=== PATIENT | male | born 1990 | race Caucasian/White ===

== ENCOUNTER 2017-03-11 00:45 | Emergency (ER) | payer BC ==
[~2017-03-11] VITALS: Ht 175.3 cm; Wt 94.8 kg
[~2017-03-11 00:45] MED LIST: ACID REDUCER PO; IBUP-1277 PO
[2017-03-11 00:56] VITALS: TEMP 36.8; Ht 175.3 cm; Wt 94.8 kg
[2017-03-11] MEDS ORDERED: HYDROCORTISONE HC 2.5% CRM 30GM TUBE EXT ONE (01:15)
[2017-03-11 01:38] VITALS: BP 118/77; PULSE 96; O2SAT 94
--- NOTE | 2017-03-11 01:45 | EMERGENCY ROOM VISIT NOTE ---
History First contact with patient: 01:03 Chief Complaint: RECTAL BLEEDING Stated Complaint: RECTUM BLEEDING Nursing Triage Summary: pt reports "this episode" of rectal bleeding began today. denies use of blood thinners. denies abd pain. denies n/v. pt ambulatory independnetly and breathing WNL. History of Present Illness The patient is a 26 year old male who presents to the Emergency Room with complaints of rectal pain and bleeding that has been intermittent for the past 6 months. Patient states when he strains to go the bathroom he has blood on the toilet paper and in the toilet that is bright red. No black stool. Patient states he eats a lot of processed foods and strains a lot. Patient denies chest pain, dyspnea, fever, chills, nausea, vomiting, diarrhea, abdominal pain, penile pain, testicular pain. No colonoscopy in the past. No family history of Crohn's, ulcerative colitis or colon cancer. Review of Systems See HPI for pertinent positives & negatives. A total of 10 systems reviewed and were otherwise negative. Past Medical/Surgical History Tonsillectomy Social History Smoking Status: Never Smoker Smokeless Tobacco Use: No Alcohol Use: occasionally Drug Use: none Occupation Status: employed Current/Historical Medications No Active Prescriptions or Reported Meds Allergies Coded Allergies: No Known Allergies (Unverified , 03/11/17) Physical Exam Vital Signs Date Time Temp Pulse Resp B/P (MAP) Pulse Ox O2 Delivery O2 Flow Rate FiO2 03/11/17 01:38 96 18 118/77 94 03/11/17 00:56 36.8 87 19 120/86 96 Room Air Pain Rating (0-10): 6.0 Physical Exam VITALS: Vitals are noted on the nurse's note and reviewed by myself. Vital signs stable. GENERAL: Pleasant male anxious-appearing, in no acute distress, nondiaphoretic, well-developed well-nourished. SKIN: The skin was without rashes, erythema, edema, or bruising. There is no tenting of the skin. Capillary reflex less than 2 seconds. HEAD: Normocephalic atraumatic. EARS: External auditory canals clear, tympanic membranes pearly mcclure without erythema or effusion bilaterally. EYES: Pupils equal round and reactive to light and accommodation. Conjunctivae without injection, sclerae without icterus. Extraocular movements intact. NOSE: Patent, turbinates without inflammation or discharge. MOUTH: Mucous membranes moist. Pharynx without erythema or exudate. Uvula midline. Airway patent. Tongue does not deviate. NECK: Supple without nuchal rigidity. No lymphadenopathy. No thyromegaly. Cervical spine is nontender. No JVD. HEART: Regular rate and rhythm without murmurs gallops or rubs. LUNGS: Clear to auscultation bilaterally without wheezes, rales or rhonchi. No dullness to percussion. No retractions or accessory muscle use. ABDOMEN: Positive bowel sounds x 4. Normal tympanic percussion. Soft, nontender, without masses or organomegaly. Martin sign negative. No guarding or rebound tenderness. Rectal exam: 3 large nonthrombosed hemorrhoids without abscess or fissure MUSCULOSKELETAL: No muscle atrophy, erythema, or edema noted. NEURO: Patient was alert and oriented to person place and time. Normal sensation to light and sharp touch. No focal neurological deficits. Medical Decision & Procedures Medications Administered Medications (Trade) Dose Ordered Sig/Ivan Route Start Time Stop Time Status Last Admin Dose Admin Hydrocortisone (Proctozone Hc 2.5% Crm) 1 appln NOW ONCE EXT 03/11/17 01:15 03/11/17 01:16 DC 03/11/17 01:25 1 APPLN ED Course Prior records/ancillary studies reviewed. Triage Nursing notes reviewed. Additional history obtained from the family. The patient's history was concerning for possible gastrointestinal bleeding. Differential diagnosis: Etiologies such as diverticulosis, AVM, coagulopathy, colitis, inflammatory bowel disease, malignancy, fissure, hemorrhoids, as well as others were entertained. Physical exam: As above. The patients vital signs were stable. ER treatment provided: Anusol On reassessment the patient felt better. Diagnostics interpreted by me: Deferred This appears to be consistent with external hemorrhoids. Patient was strongly encouraged to increase his fluid and fiber intake. He is advised take a stool softener. He was advised to avoid straining when to go the bathroom. He was advised to use hemorrhoid cream and to see his family care for referral to have his hemorrhoids removed. There were not thrombosed. No palpable abscess. He was well-appearing. He was advised to return to the ER immediately for severe pain, fevers, heavy bleeding, worsening signs or symptoms or as needed. By the evaluation outlined above emergent etiologies such as malignancy, inflammatory bowel disease, as well as others were deemed relatively unlikely. The pt informed about the findings as listed above. All questions were answered and pleased with the treatment. Return instructions were outlined and the patient was discharged in stable condition. Outpatient prescription management: Anusol Referral: The patient was referred back to their primary care physician for follow-up in 2 to 3 days for a recheck of the current condition Medical Decision As above Impression Primary Impression: External hemorrhoid, bleeding Departure Information Dispostion Home / Self-Care Condition GOOD Prescriptions No Active Prescriptions or Reported Meds Forms WORK / SCHOOL INSTRUCTIONS, HOME CARE DOCUMENTATION FORM, Days off work : 2 Work Instructions, IMPORTANT VISIT INFORMATION Patient Instructions Hemorrhoids Self Care, [employer] Additional Instructions Recommend using MiraLAX daily. Avoid straining when you go to the bathroom. Increase your fluid and fiber intake. Use Anusol cream 2-3 times a day to the hemorrhoids. Follow-up with family care in 2-3 days for referral to have your hemorrhoids removed. Return to ER sooner for heavy bleeding, severe pain, fevers, worsening signs or symptoms or as needed.
== END 2017-03-11 01:38 | disposition home or self-care (01) ==
LOC: C.EDB 00:46
DX: K64.4 Residual hemorrhoidal skin tags (principal)

== ENCOUNTER 2021-10-01 13:12 | Inpatient (IN) ==
[2021-10-01] MEDS ORDERED: KETOROLAC TROMETHAMINE 15 MG/ML VIAL IV ONE (13:27)
[2021-10-01] MEDS ORDERED: SODIUM CHLORIDE 0.9% 1000ML 1,000 ML IV ONE (13:27)
[2021-10-01] MEDS ORDERED: MoRPHine SULFATE 10 MG/ML CARP/VIAL IV STA ×2 (13:27→15:47)
[2021-10-01] MEDS ORDERED: ONDANSETRON INJ 2 MG/ML 2 ML VIAL IV STA (13:27)
--- NOTE | 2021-10-01 13:34 | Emergency Department Note ---
Impression & Plan Calculus of kidney, Hydronephrosis, Abdominal pain ED Provider Note NAME: JACKIE ALVARENGA AGE: 31 SEX: M : 1990 ARRIVES VIA: Walk-In INFORMANT: Patient ED PROVIDER(S): Tommy Vega DO CHIEF COMPLAINT: Right flank pain HPI: Patient is a 31-year-old male who presents to the ER for right flank pain. Pain started about an hour ago. He admits to nausea and feeling like he is going to vomit. No headache or change in vision. No chest pain or shortness of breath. Denies any dysuria, urgency, or frequency. History of kidney stones and this feels similar but significant worse. Pain is a 2010 and is unremitting. He is radiating to his right lower quadrant. Denies any testicle swelling penile drainage or discharge. ROS: See above HPI for pertinent positives & negatives. A total of 10 systems reviewed and were otherwise negative. PAST MEDICAL HISTORY:See Below PAST SURGICAL HISTORY:See Below FAMILY HISTORY:See Below SOCIAL HISTORY:See Below HOME MEDICATIONS:See Below ALLERGIES:See Below VITALS:See Below PHYSICAL EXAMINATION: GENERAL: Sitting up in bed, alert, significant distress holding right flank tearful and crying EYE EXAM: normal conjunctiva. PERRL and EOM's grossly intact. OROPHARYNX: no exudate, no erythema, lips, buccal mucosa, and tongue normal and mucous membranes are moist NECK: supple, no nuchal rigidity, no adenopathy, non-tender LUNGS: Clear to auscultation. Normal chest wall mechanics HEART: no murmurs, S1 normal and S2 normal ABDOMEN: abdomen soft, non-tender, normo-active bowel sounds, no masses, no rebound or guarding. UPPER EXTREMITIES: upper extremities are grossly normal. LOWER EXTREMITIES: No pitting edema. NEURO EXAM: Normal sensorium, cranial nerves II-XII grossly intact, normal speech, no gross weakness of arms, no gross weakness of legs. MEDICAL DECISION MAKING: Patient is a 31-year-old male who presents ER for severe right flank pain. IV was established blood work restain. Labs show no significant leukocytosis or anemia. BMP with mild elevation in glucose. Bilirubin LFTs were unremarkable. Lipase was normal. UA was contaminated but did have multiple RBCs. CT shows a 3 mm distal right ureteral stone. Covid was negative. He was given an equivalent of 20 mg of morphine over several hours. She was still having persistent pain. He was updated bedside discussed with hospitalist for further observation. Triage Nursing notes reviewed. Limited review of prior medical records performed Vital Signs: reviewed and remarkable for HTN Differential diagnosis: Differential diagnoses includes but is not limited to gastritis, peptic ulcer disease, GERD, gallbladder disease, pancreatitis, small bowel obstruction, acute coronary syndrome, pericarditis, ischemic bowel, irritable bowel disease, irritable bowel syndrome, appendicitis, diverticulitis, malignancy, hernia, urinary tract infection, torsion, perforation, trauma, infectious. ER treatment provided: See below Diagnostics interpreted by me: ECG: none Cardiac Monitoring: An order was placed for continuous cardiac monitoring. The monitor shows a rate of 92 with sinus rhythm. Laboratory studies: As stated above and show below. Imaging studies: CT abdomen pelvis shows a 3 mm right ureteral stone Consultation(s): d/w Dr. Lees for further eval Procedures: none Critical Care: None Past Med/Surg History Medical History (Updated 10/01/21 @ 16:29 by Tommy Vega DO) No chronic problems Family History (Updated 07/26/19 @ 23:06 by Justin Diego) Other No significant family history Social History Smoking Status: Never smoker Preferred Language: Icelandic Feels Safe at Home: Yes Allergies Allergies Allergy/AdvReac Type Severity Reaction Status Date / Time No Known Allergies Allergy Unverified 10/01/21 14:52 Home Meds Home Medications Medication Instructions Recorded Confirmed No Known Home Medications 10/01/21 10/01/21 Results & Data (ED) Vital Signs Vital Signs - 24 hr 10/01/21 13:14 10/01/21 13:40 10/01/21 14:20 Temperature 36.9 C Temperature Source Temporal Artery Scan Pulse Rate 95 H Pulse Rate [Finger] 76 Pulse Rhythm [Finger] Regular Pulse Strength [Finger] Normal Respiratory Rate 24 22 20 Respiratory Effort / Characteristics Non-Labored Respiratory Depth Normal Blood Pressure 162/86 H Blood Pressure [Right Arm] 160/89 H Blood Pressure Mean 111 Blood Pressure Mean [Right Arm] 112 Blood Pressure Position [Right Arm] Lying Pulse Oximetry 98 98 Oxygen Delivery Method Room Air Room Air Room Air Sepsis Recent Fever Within 48 Hours No Sepsis New/Unexplained Change in Mental Status N/A Sepsis Action Taken by Nursing No Action Required 10/01/21 16:00 Temperature Temperature Source Pulse Rate Pulse Rate [Finger] 84 Pulse Rhythm [Finger] Regular Pulse Strength [Finger] Normal Respiratory Rate 18 Respiratory Effort / Characteristics Non-Labored Respiratory Depth Normal Blood Pressure Blood Pressure [Right Arm] 156/88 H Blood Pressure Mean Blood Pressure Mean [Right Arm] 110 Blood Pressure Position [Right Arm] Lying Pulse Oximetry 96 Oxygen Delivery Method Room Air Sepsis Recent Fever Within 48 Hours Sepsis New/Unexplained Change in Mental Status Sepsis Action Taken by Nursing Laboratory Data Result diagrams: 10/01/21 13:40 10/01/21 13:40 Lab Results 10/01/21 10/01/21 10/01/21 Range/Units 13:40 13:40 15:08 WBC 8.09 (4.8-10.8) K/uL RBC 5.04 (4.7-6.1) M/uL Hgb 14.8 (14.0-18.0) g/dL Hct 44.8 (42-52) % MCV 88.9 (80-100) fL MCH 29.4 (25-34) pg MCHC 33.0 (32-36) g/dL RDW Std Deviation 44.9 (36.4-46.3) fL RDW Coeff of Ju 13.7 (11.5-14.5) % Plt Count 212 (130-400) K/uL MPV 10.3 (7.4-10.4) fL Immature Gran % (Auto) 0.5 % Neut % (Auto) 52.5 % Lymph % (Auto) 38.6 % [place] % (Auto) 6.9 % Eos % (Auto) 1.4 % Baso % (Auto) 0.1 % Neut # (Auto) 4.25 (1.4-6.5) K/uL Lymph # (Auto) 3.12 (1.2-3.4) K/uL [place] # (Auto) 0.56 (0.11-0.59) K/uL Eos # (Auto) 0.11 (0-0.5) K/uL Baso # (Auto) 0.01 (0-0.2) K/uL Immature Gran # (Auto) 0.04 H (0.00-0.02) K/uL Sodium 140 (136-145) mmol/L Potassium 3.5 (3.5-5.1) mmol/L Chloride 107 (98-107) mmol/L Carbon Dioxide 28 (21-32) mmol/L Anion Gap 5 (3-11) BUN 15 (6-23) mg/dl Creatinine 1.24 (0.6-1.4) mg/dl Est Cr Clr Drug Dosing 105.1 ml/min Est GFR ( Amer) 89.2 ml/min Est GFR (Non-Af Amer) 77.0 ml/min BUN/Creatinine Ratio 12.1 (10-20) Glucose 108 H (70-99(Fasting)) mg/dl Calcium 9.0 (8.5-10.1) mg/dl Total Bilirubin 0.8 (0.2-1.0) mg/dl AST 20 (13-39) U/L ALT 24 (7-52) U/L Alkaline Phosphatase 47 (34-104) U/L Total Protein 7.0 (6.0-8.3) gm/dl Albumin 4.4 (3.4-5.0) gm/dl Globulin 2.6 (2.5-4.0) gm/dl Albumin/Globulin Ratio 1.7 (0.9-2) Lipase 30 (11-82) U/L Urine Color [place] Urine Appearance Turbid A (Clear) Urine pH 5.0 (4.5-7.5) Ur Specific [place] 1.034 H (1.000-1.030) Urine Protein 2+ H (Negative) Urine Glucose (UA) Negative (Negative) Urine Ketones Trace H (Negative) Urine Blood 3+ H (Negative) Urine Nitrite Negative (Negative) Urine Bilirubin 1+ H (Negative) Urine Urobilinogen Negative (Negative) Ur Leukocyte Esterase 1+ H (Negative) Urine WBC (Auto) 5-10 H (0-5) /hpf Urine RBC (Auto) >30 H (0-4) /hpf U Hyaline Cast (Auto) 0 (0-5) /lpf U Epithel Cells (Auto) 20-30 H (0-5) /lpf Urine Bacteria (Auto) Negative (Negative) SARS-CoV-2, RNA, NAAT (NEGATIVE) 10/01/21 Range/Units 16:00 WBC (4.8-10.8) K/uL RBC (4.7-6.1) M/uL Hgb (14.0-18.0) g/dL Hct (42-52) % MCV (80-100) fL MCH (25-34) pg MCHC (32-36) g/dL RDW Std Deviation (36.4-46.3) fL RDW Coeff of Ju (11.5-14.5) % Plt Count (130-400) K/uL MPV (7.4-10.4) fL Immature Gran % (Auto) % Neut % (Auto) % Lymph % (Auto) % [place] % (Auto) % Eos % (Auto) % Baso % (Auto) % Neut # (Auto) (1.4-6.5) K/uL Lymph # (Auto) (1.2-3.4) K/uL [place] # (Auto) (0.11-0.59) K/uL Eos # (Auto) (0-0.5) K/uL Baso # (Auto) (0-0.2) K/uL Immature Gran # (Auto) (0.00-0.02) K/uL Sodium (136-145) mmol/L Potassium (3.5-5.1) mmol/L Chloride (98-107) mmol/L Carbon Dioxide (21-32) mmol/L Anion Gap (3-11) BUN (6-23) mg/dl Creatinine (0.6-1.4) mg/dl Est Cr Clr Drug Dosing ml/min Est GFR ( Amer) ml/min Est GFR (Non-Af Amer) ml/min BUN/Creatinine Ratio (10-20) Glucose (70-99(Fasting)) mg/dl Calcium (8.5-10.1) mg/dl Total Bilirubin (0.2-1.0) mg/dl AST (13-39) U/L ALT (7-52) U/L Alkaline Phosphatase (34-104) U/L Total Protein (6.0-8.3) gm/dl Albumin (3.4-5.0) gm/dl Globulin (2.5-4.0) gm/dl Albumin/Globulin Ratio (0.9-2) Lipase (11-82) U/L Urine Color Urine Appearance (Clear) Urine pH (4.5-7.5) Ur Specific [place] (1.000-1.030) Urine Protein (Negative) Urine Glucose (UA) (Negative) Urine Ketones (Negative) Urine Blood (Negative) Urine Nitrite (Negative) Urine Bilirubin (Negative) Urine Urobilinogen (Negative) Ur Leukocyte Esterase (Negative) Urine WBC (Auto) (0-5) /hpf Urine RBC (Auto) (0-4) /hpf U Hyaline Cast (Auto) (0-5) /lpf U Epithel Cells (Auto) (0-5) /lpf Urine Bacteria (Auto) (Negative) SARS-CoV-2, RNA, NAAT NEGATIVE (NEGATIVE) Administered Medications Sodium Chloride (Nss 1000ml) 2,000 mls @ 999 mls/hr IV .Q2H1M ONE Stop: 10/01/21 16:59 Last Admin: 10/01/21 15:15 Dose: 999 mls/hr Documented by: [id number] Discontinued Medications Hydromorphone HCl (Hydromorphone Inj 1 Mg/Ml Syringe) 1 mg IV NOW STA Stop: 10/01/21 14:16 Last Admin: 10/01/21 14:19 Dose: 1 mg Documented by: [id number] Sodium Chloride (Nss 1000ml) 1,000 mls @ 999 mls/hr IV .Q1H1M ONE Stop: 10/01/21 14:27 Last Infusion: 10/01/21 14:44 Dose: 999 mls/hr Documented by: [id number] Admin: 10/01/21 13:43 Dose: 999 mls/hr Documented by: [id number] Ketorolac Tromethamine (Ketorolac Tromethamine 15 Mg/Ml Vial) 15 mg IV NOW ONE Stop: 10/01/21 13:28 Last Admin: 10/01/21 13:42 Dose: 15 mg Documented by: [id number] Morphine Sulfate (Morphine Sulfate 10 Mg/Ml Carp/Vial) 6 mg IV NOW STA Stop: 10/01/21 13:28 Last Admin: 10/01/21 13:43 Dose: 6 mg Documented by: [id number] Morphine Sulfate (Morphine Sulfate 10 Mg/Ml Carp/Vial) 8 mg IV NOW STA Stop: 10/01/21 15:48 Last Admin: 10/01/21 15:58 Dose: Not Given Documented by: [id number] Morphine Sulfate (Morphine Sulfate 4 Mg/Ml 1 Ml Carp\Vial) Confirm Administered Dose 8 mg .ROUTE .STK-MED ONE Stop: 10/01/21 15:52 Last Admin: 10/01/21 15:55 Dose: 8 mg Documented by: [id number] Ondansetron HCl (Ondansetron Inj 2 Mg/Ml 2 Ml Vial) 4 mg IV NOW STA Stop: 10/01/21 13:28 Last Admin: 10/01/21 13:42 Dose: 4 mg Documented by: [id number] Imaging Data Radiologist's Impression: Abdomen/Pelvis CT 10/01/21 13:27 CT SCAN OF THE ABDOMEN AND PELVIS WITHOUT IV CONTRAST CLINICAL HISTORY: Right flank pain. COMPARISON STUDY: No priors. TECHNIQUE: CT scan of the abdomen and pelvis is performed from the lung bases to the proximal femora. Images are reviewed in the axial, sagittal, and coronal planes. IV contrast was not administered for this examination. A dose lowering technique was utilized adhering to the principles of ALARA. CT DOSE: 683.90 mGy.cm FINDINGS: Lung bases: The heart is normal in size and without pericardial effusion. The lung bases are clear. A small hiatal hernia is noted. Circumferential wall thickening suggested in the distal esophagus. Liver: The unenhanced liver is normal in size, contour, and attenuation. There is no intrahepatic biliary ductal dilatation. Gallbladder: Unremarkable. Spleen: The spleen is mildly enlarged measuring 14.2 cm in length. Pancreas: Unremarkable. Adrenal glands: Unremarkable. Kidneys: The unenhanced kidneys are normal in size there is a 3 mm obstructing calculus in the right proximal ureter at the level of L3 seen on image #231. This causes mild right hydronephrosis. There is an additional 3 mm nonobstructing calculus in the right upper pole. A 4 mm nonobstructing calculus is seen in the left kidney. There is no left-sided hydronephrosis. There is no evidence of contour deforming renal mass lesion. Abdominal vasculature: The abdominal aorta is normal in course and caliber. Bowel: There is no bowel obstruction. The appendix is well-visualized and normal. Peritoneum: There is no intraperitoneal free air or abdominal ascites. There is a fat-containing umbilical hernia. Lymphadenopathy: None. Pelvic viscera: The bladder, prostate, and seminal vesicles are normal as visualized. There are small bilateral fat-containing inguinal hernias. Skeletal structures: No lytic or blastic lesions are seen. IMPRESSION: 1. There is a 3 mm obstructing calculus in the right proximal ureter. This causes mild right hydronephrosis. 2. Additional small nonobstructing calculi are present in both kidneys. 3. Mild splenomegaly. 4. Circumferential wall thickening is suggested in the distal esophagus. Correlate clinically for evidence of esophagitis. ACT 112: Negative or not required by law. Electronically signed by: Rodney Hernandez M.D. 10/01/2021 3:12 PM Discharge Plan Visit Data Chief Complaint: Abdominal Pain Stated Complaint: RLQ PAIN ED Provider: Tommy Vega Discharge Problem: Calculus of kidney, Hydronephrosis, Abdominal pain Forms Stand Alone Forms: [facility] [employer] Prescriptions Prescriptions: No Action No Known Home Medications RF: 0 Referrals Referrals: Deangelo Dixon [Primary Care Provider] -
[2021-10-01 13:59] LABS: Basophils # (auto) 0.01 K/uL (0-0.2); Basophils % (auto) 0.1 %; Eosinophils # (auto) 0.11 K/uL (0-0.5); Eosinophils % (auto) 1.4 %; Hematocrit (blood only) 44.8 % (42-52); Hemoglobin 14.8 g/dL (14.0-18.0); Immature Granulocytes # (auto) 0.04 K/uL (0.00-0.02); Immature Granulocytes % (auto) 0.5 %; Lymphocytes # (auto) 3.12 K/uL (1.2-3.4); Lymphocytes % (auto) 38.6 %; Mean Corpuscular Hemoglobin 29.4 pg (25-34); Mean Corpuscular Volume 88.9 fL (80-100); Mean Platelet Volume 10.3 fL (7.4-10.4); Monocytes # (auto) 0.56 K/uL (0.11-0.59); Monocytes % (auto) 6.9 %; Neutrophils # (auto) 4.25 K/uL (1.4-6.5); Neutrophils % (auto) 52.5 %; Platelet Count 212 K/uL (130-400); RDW Coefficient of Variation 13.7 % (11.5-14.5); RDW Standard Deviation 44.9 fL (36.4-46.3); Red Blood Count 5.04 M/uL (4.7-6.1); White Blood Count 8.09 K/uL (4.8-10.8)
[2021-10-01] MEDS ORDERED: HYDROmorphone INJ 1 MG/ML SYRINGE IV STA (14:15)
[2021-10-01 14:31] LABS: Albumin Globulin Ratio 1.7 (0.9-2); Albumin Level 4.4 gm/dl (3.4-5.0); BUN Creatinine Ratio 12.1 (10-20); Bilirubin,Total 0.8 mg/dl (0.2-1.0); Creatinine Clr Calc Pharmacy 105.1 ml/min; Est GFR (African American) 89.2 ml/min; Globulin 2.6 gm/dl (2.5-4.0); Potassium 3.5 mmol/L (3.5-5.1)
[2021-10-01] MEDS ORDERED: SODIUM CHLORIDE 0.9% 1000ML 2,000 ML IV ONE (14:59)
--- NOTE | 2021-10-01 15:14 | CT Scan Report ---
CT SCAN OF THE ABDOMEN AND PELVIS WITHOUT IV CONTRAST CLINICAL HISTORY: Right flank pain. COMPARISON STUDY: No priors. TECHNIQUE: CT scan of the abdomen and pelvis is performed from the lung bases to the proximal femora. Images are reviewed in the axial, sagittal, and coronal planes. IV contrast was not administered for this examination. A dose lowering technique was utilized adhering to the principles of ALARA. CT DOSE: 683.90 mGy.cm FINDINGS: Lung bases: The heart is normal in size and without pericardial effusion. The lung bases are clear. A small hiatal hernia is noted. Circumferential wall thickening suggested in the distal esophagus. Liver: The unenhanced liver is normal in size, contour, and attenuation. There is no intrahepatic jonas iary ductal dilatation. Gallbladder: Unremarkable. Spleen: The spleen is mildly enlarged measuring 14.2 cm in length. Pancreas: Unremarkable. Adrenal glands: Unremarkable. Kidneys: The unenhanced kidneys are normal in size there is a 3 mm obstructing calculus in the right proximal ureter at the level of L3 seen on image #231. This causes mild right hydronephrosis. There i s an additional 3 mm nonobstructing calculus in the right upper pole. A 4 mm nonobstructing calculus is seen in the left kidney. There is no left-sided hydronephrosis. There is no evidence of contour de forming renal mass lesion. Abdominal vasculature: The abdominal aorta is normal in course and caliber. Bowel: There is no bowel obstruction. The appendix is well-visualized and normal. Peritoneum: There is no intraperitoneal free air or abdominal ascites. There is a fat-containing umbi lical hernia. Lymphadenopathy: None. Pelvic viscera: The bladder, prostate, and seminal vesicles are normal as visualized. There are small bilateral fat-containing inguinal hernias. Skeletal structures: No lytic or blastic lesions are seen. IMPRESSION: 1. There is a 3 mm obstructing calculus in the right proximal ureter. This causes mild right hydronep hrosis. 2. Additional small nonobstructing calculi are present in both kidneys. 3. Mild splenomegaly. 4. Circumferential wall thickening is suggested in the distal esophagus. Correlate clinically for herber dence of esophagitis. ACT 112: Negative or not required by law. Electronically signed by: Rodney Hernandez M.D. 10/01/2021 3:12 PM
[2021-10-01 15:27] LABS: Appearance Urine Turbid (Clear); Bacteria Urine Automated Negative (Negative); Blood Urine 3+ (Negative); Color Urine Orange; Epithelial Cell Urine Auto 20-30 /lpf (0-5); Glucose Urine UA Negative (Negative); Ketones Urine Trace (Negative); Leukocyte Esterase Urine 1+ (Negative); Nitrite Urine Negative (Negative); Protein Urine 2+ (Negative); RBC Urine Automated >30 /hpf (0-4); Specific Gravity Urine 1.034 (1.000-1.030); Urobilinogen Urine Negative (Negative)
[2021-10-01 15:34] LABS: Bilirubin Urine 1+ (Negative)
[2021-10-01] MEDS ORDERED: MoRPHine SULFATE 4 MG/ML 1 ML CARP\\VIAL ONE (15:51)
[2021-10-01 15:53] LABS: Cast Urine Automated 0 /lpf (0-5)
--- NOTE | 2021-10-01 16:48 | History & Physical Report ---
Date of Service October 01, 2021 Assessment & Plan (1) Hydronephrosis: Plan: Patient is a 3 mm right nephrolithiasis with hydronephrosis Although this is likely the patient's own, patient is having significant pain and will be admitted for treatment of this Does not appear infected, will hold antibiotic for now Will start IV Dilaudid 1 mg every 4 hours as needed for pain. Can increase as needed if patient tolerates Start Flomax 0.4 mg Aggressive IV hydration Strain all urine Monitor labs including renal function ER physician was to make contact with the urology service, will consult for further management History of Present Illness Chief Complaint: Renal stone Primary Care Provider: Deangelo Dixon This is a 31-year-old male with past medical history that presents today complaining renal stone. Patient is accompanied by his significant other, is good historian but is in distress secondary to pain. Patient tells me that his pain started earlier today. His left flank with some radiations down to the groin. He denies any fever or chills. He denies any other systemic symptoms such as chest pain, shortness of breath, nausea or vomiting. On arrival to the ER, he had a CT scan which showed a 3 mm nephrolithiasis and and the right ureter with some mild hydronephrosis. Patient was given a 6 mg morphine sulfate dose IV, followed by another 8 mg dose. Patient still having significant pain. After this, he was given a dose of Dilaudid, still with pain. Decision was then made to admit the patient for pain control. Allergies Allergy/AdvReac Type Severity Reaction Status Date / Time No Known Allergies Allergy Unverified 10/01/21 14:52 Home Medications Medication Instructions Recorded Confirmed Type No Known Home Medications 10/01/21 10/01/21 History Past Med/Surg History Medical History No chronic problems Family History Other No significant family history Social History Smoking Status: Never smoker Preferred Language: Tanzanian Feels Safe at Home: Yes Review of Systems Constitutional: no fever, no chills, no weakness, no weight loss and no weight gain Eyes: as per Subjective / HPI Respiratory: no cough, no chest congestion, no dyspnea and no dyspnea on exertion Cardiovascular: no chest pain, no orthopnea, no palpitations, no lightheadedness and no edema Gastrointestinal: no abdominal pain, no nausea, no vomiting, no constipation and no diarrhea/loose stools Genitourinary: + as per Subjective / HPI; no dysuria, no urinary hesitancy or no hematuria Musculoskeletal: no back pain, no neck pain, no joint pain, no stiffness and no myalgia Integumentary: no rash Neurologic: no gait abnormality, no unsteadiness, no falls and no generalized weakness Physical Exam Constitutional: + acute distress and cooperative Neck: trachea midline, no thyromegaly Respiratory: normal respiratory effort Auscultation: lungs clear to auscultation bilaterally; no crackles, no rales, no rhonchi and no wheezes Cardiovascular: Rate/Rhythm: regular rate and regular rhythm Heart Sounds: normal S1 and normal S2 Gastrointestinal (Abdomen): Inspection/Auscultation: abdomen normal to inspection Percussion/Palpation: abdomen soft; abdomen nontender, no guarding, abdomen not rigid and no hepatosplenomegaly Skin: no rashes, warm and dry Results & Data Results & Data ([facility]) Vital Signs (Past 12 Hours) Vital Signs Temp Pulse Pulse Resp BP BP Pulse Ox 10/01/21 16:00 84 18 156/88 H 96 10/01/21 14:20 76 20 160/89 H 98 10/01/21 13:40 22 10/01/21 13:14 36.9 C 95 H 24 162/86 H 98 Laboratory Results Laboratory Results WBC 8.09 K/uL (4.8-10.8) 10/01/21 13:40 RBC 5.04 M/uL (4.7-6.1) 10/01/21 13:40 Hgb 14.8 g/dL (14.0-18.0) 10/01/21 13:40 Hct 44.8 % (42-52) 10/01/21 13:40 MCV 88.9 fL (80-100) 10/01/21 13:40 MCH 29.4 pg (25-34) 10/01/21 13:40 MCHC 33.0 g/dL (32-36) 10/01/21 13:40 RDW Std Deviation 44.9 fL (36.4-46.3) 10/01/21 13:40 RDW Coeff of Ju 13.7 % (11.5-14.5) 10/01/21 13:40 Plt Count 212 K/uL (130-400) 10/01/21 13:40 MPV 10.3 fL (7.4-10.4) 10/01/21 13:40 Immature Gran % (Auto) 0.5 % 10/01/21 13:40 Neut % (Auto) 52.5 % 10/01/21 13:40 Lymph % (Auto) 38.6 % 10/01/21 13:40 [place] % (Auto) 6.9 % 10/01/21 13:40 Eos % (Auto) 1.4 % 10/01/21 13:40 Baso % (Auto) 0.1 % 10/01/21 13:40 Neut # (Auto) 4.25 K/uL (1.4-6.5) 10/01/21 13:40 Lymph # (Auto) 3.12 K/uL (1.2-3.4) 10/01/21 13:40 [place] # (Auto) 0.56 K/uL (0.11-0.59) 10/01/21 13:40 Eos # (Auto) 0.11 K/uL (0-0.5) 10/01/21 13:40 Baso # (Auto) 0.01 K/uL (0-0.2) 10/01/21 13:40 Immature Gran # (Auto) 0.04 K/uL (0.00-0.02) H 10/01/21 13:40 Sodium 140 mmol/L (136-145) 10/01/21 13:40 Potassium 3.5 mmol/L (3.5-5.1) 10/01/21 13:40 Chloride 107 mmol/L (98-107) 10/01/21 13:40 Carbon Dioxide 28 mmol/L (21-32) 10/01/21 13:40 Anion Gap 5 (3-11) 10/01/21 13:40 BUN 15 mg/dl (6-23) 10/01/21 13:40 Creatinine 1.24 mg/dl (0.6-1.4) 10/01/21 13:40 Est Cr Clr Drug Dosing 105.1 ml/min 10/01/21 13:40 Est GFR ( Amer) 89.2 ml/min 10/01/21 13:40 Est GFR (Non-Af Amer) 77.0 ml/min 10/01/21 13:40 BUN/Creatinine Ratio 12.1 (10-20) 10/01/21 13:40 Glucose 108 mg/dl (70-99(Fasting)) H 10/01/21 13:40 Calcium 9.0 mg/dl (8.5-10.1) 10/01/21 13:40 Total Bilirubin 0.8 mg/dl (0.2-1.0) 10/01/21 13:40 AST 20 U/L (13-39) 10/01/21 13:40 ALT 24 U/L (7-52) 10/01/21 13:40 Alkaline Phosphatase 47 U/L (34-104) 10/01/21 13:40 Total Protein 7.0 gm/dl (6.0-8.3) 10/01/21 13:40 Albumin 4.4 gm/dl (3.4-5.0) 10/01/21 13:40 Globulin 2.6 gm/dl (2.5-4.0) 10/01/21 13:40 Albumin/Globulin Ratio 1.7 (0.9-2) 10/01/21 13:40 Lipase 30 U/L (11-82) 10/01/21 13:40 Urine Color [place] 10/01/21 15:08 Urine Appearance Turbid (Clear) A 10/01/21 15:08 Urine pH 5.0 (4.5-7.5) 10/01/21 15:08 Ur Specific [place] 1.034 (1.000-1.030) H 10/01/21 15:08 Urine Protein 2+ (Negative) H 10/01/21 15:08 Urine Glucose (UA) Negative (Negative) 10/01/21 15:08 Urine Ketones Trace (Negative) H 10/01/21 15:08 Urine Blood 3+ (Negative) H 10/01/21 15:08 Urine Nitrite Negative (Negative) 10/01/21 15:08 Urine Bilirubin 1+ (Negative) H 10/01/21 15:08 Urine Urobilinogen Negative (Negative) 10/01/21 15:08 Ur Leukocyte Esterase 1+ (Negative) H 10/01/21 15:08 Urine WBC (Auto) 5-10 /hpf (0-5) H 10/01/21 15:08 Urine RBC (Auto) >30 /hpf (0-4) H 10/01/21 15:08 U Hyaline Cast (Auto) 0 /lpf (0-5) 10/01/21 15:08 U Epithel Cells (Auto) 20-30 /lpf (0-5) H 10/01/21 15:08 Urine Bacteria (Auto) Negative (Negative) 10/01/21 15:08 SARS-CoV-2, RNA, NAAT NEGATIVE (NEGATIVE) 10/01/21 16:00 Impressions Abdomen/Pelvis CT 10/01/21 13:27 CT SCAN OF THE ABDOMEN AND PELVIS WITHOUT IV CONTRAST CLINICAL HISTORY: Right flank pain. COMPARISON STUDY: No priors. TECHNIQUE: CT scan of the abdomen and pelvis is performed from the lung bases to the proximal femora. Images are reviewed in the axial, sagittal, and coronal planes. IV contrast was not administered for this examination. A dose lowering technique was utilized adhering to the principles of ALARA. CT DOSE: 683.90 mGy.cm FINDINGS: Lung bases: The heart is normal in size and without pericardial effusion. The lung bases are clear. A small hiatal hernia is noted. Circumferential wall thickening suggested in the distal esophagus. Liver: The unenhanced liver is normal in size, contour, and attenuation. There is no intrahepatic biliary ductal dilatation. Gallbladder: Unremarkable. Spleen: The spleen is mildly enlarged measuring 14.2 cm in length. Pancreas: Unremarkable. Adrenal glands: Unremarkable. Kidneys: The unenhanced kidneys are normal in size there is a 3 mm obstructing calculus in the right proximal ureter at the level of L3 seen on image #231. This causes mild right hydronephrosis. There is an additional 3 mm nonobstructing calculus in the right upper pole. A 4 mm nonobstructing calculus is seen in the left kidney. There is no left-sided hydronephrosis. There is no evidence of contour deforming renal mass lesion. Abdominal vasculature: The abdominal aorta is normal in course and caliber. Bowel: There is no bowel obstruction. The appendix is well-visualized and normal. Peritoneum: There is no intraperitoneal free air or abdominal ascites. There is a fat-containing umbilical hernia. Lymphadenopathy: None. Pelvic viscera: The bladder, prostate, and seminal vesicles are normal as visualized. There are small bilateral fat-containing inguinal hernias. Skeletal structures: No lytic or blastic lesions are seen. IMPRESSION: 1. There is a 3 mm obstructing calculus in the right proximal ureter. This cause s mild right hydronephrosis. 2. Additional small nonobstructing calculi are present in both kidneys. 3. Mild splenomegaly. 4. Circumferential wall thickening is suggested in the distal esophagus. Correlate clinically for evidence of esophagitis. ACT 112: Negative or not required by law. Electronically signed by: Rodney Hernandez M.D. 10/01/2021 3:12 PM PG Care Time/CCT Total # of Minutes Spent Total Time Spent with Patient: Total time spent is greater than 50% in coordination of care (as documented) at patient's floor/unit and/or counseling patient: Coding Level of Care Code 62780 Initial Inpt Care Lvl 3 Diagnoses Hydronephrosis N13.30 Hydronephrosis type: unspecified (1) Hydronephrosis Hydronephrosis type: unspecified Qualified Code(s): N13.30 - Unspecified hydronephrosis
[2021-10-01] MEDS ORDERED: HYDROmorphone INJ 1 MG/ML SYRINGE IV PRN (20:02)
[2021-10-01] MEDS: SODIUM CHLORIDE 0.9% 1000ML 1,000 ML IV SCH (20:20)
[2021-10-01] MEDS ORDERED: TAMSULOSIN HCL 0.4 MG CAP PO SCH (21:00)
--- NOTE | 2021-10-01 21:11 | Urology Consultation ---
Date of Consultation October 01, 2021 Assessment & Plan (1) Calculus of kidney: Due to the intractable nature of the pain he has been admitted on the hospitalist service. We recommend proceeding as follows: Provide analgesics Provide antiemetics Provide Flomax for expulsive therapy Provide IV fluid for hydration Strain all urine and save any kidney stones for analysis I have discussed with the patient that his stone is only 3 mm in size and therefore he has a good likelihood of passing the stone on his own. I discussed with him that in the event that his stone does not pass and he continues to have intractable pain, develops signs or symptoms of infection/sepsis, or develops signs of acute kidney injury he may require cystoscopic intervention. We will make him n.p.o. after midnight to ensure that the patient is ready in case cystoscopy is required. If the patient's pain is improved and he has none of the above warning signs or symptoms we will advance his diet. Additional recommendations be forthcoming based on his clinical course as unfolds History of Present Illness Reason for Consultation: Nephrolithiasis Attending Physician: Adan Lees DO History of Present Illness This is a 31-year-old male who presented to the [facility] emergency department secondary to right flank pain that began earlier today. He notes the pain is located in the right flank/back area with radiation to the front of his abdomen into his groin. When the pain initially began he did r eport some dysuria which has subsequently resolved. He denied any hematuria. He denies any urinary frequency. Notes that the pain is palliated only with medicines that were administered in the emergency department. He does not note any provocative factors. He does report a history of prior kidney stones but notes that he is always been able to pass them on his own and has never required lithotripsy or cystoscopy. With his current presentation he denies any nausea vomiting. He also denies any fevers, shakes, chills. Today in the emergency department patient had labs and imaging which I independently reviewed. He did undergo a CT scan of the abdomen and pelvis that showed a 3 mm kidney stone in the right proximal ureter causing mild right hydronephrosis. Is also noted to have a 4 mm nonobstructing stone in the left kidney with no resultant left hydronephrosis. CBC revealed white blood cell count, hemoglobin, hematocrit, and platelet count are all within normal range. Chemistry profile showed sodium, potassium, BUN, and creatinine were all within normal range. Urinalysis showed some turbid urine which was negative for nitrites. There was 1+ leukocyte Estrace. There were only 5-10 white blood cells per high-power field and no bacteria. A Covid test was performed and was negative. In the emergency department the patient required large amounts of analgesics and was felt that admission for further management was required. At the time of my interview the patient noted that his pain was markedly improved and he was in no distress. He notes that he has been able to urinate without difficulty. He was also noted to be afebrile and hemodynamically stable. Allergies Allergy/AdvReac Type Severity Reaction Status Date / Time No Known Allergies Allergy Unverified 10/01/21 14:52 Home Medications Medication Instructions Recorded Confirmed Type No Known Home Medications 10/01/21 10/01/21 History Patient History Medical History No chronic problems Family History Other No significant family history Social History Smoking Status: Never smoker Hx Alcohol Use: Yes Alcohol type: hard liquor Hx Substance Use: No Preferred Language: Italian Communication Ability: Effective [employer] Person Required: No Beliefs That Will Affect Care: None Current Living Situation: Spouse Other Information That Helps Us Care for You: No Feels Safe at Home: Yes Safety Concerns: Feels Safe At This Time Assistive Devices: Glasses Review of Systems Constitutional: no fever and no chills Eyes: no diplopia Ear, Nose, Mouth, Throat: no ear pain Respiratory: no cough Cardiovascular: no chest pain Gastrointestinal: + abdominal pain (Radiating from right flank); no nausea and no vomiting Genitourinary: + dysuria (Resolved) and + flank pain (Right sided); no urinary frequency or no hematuria Musculoskeletal: + back pain (Right flank) Integumentary: no rash Neurologic: no localized weakness Physical Exam Constitutional: WD/WN, vitals as above Eyes: no conjunctival abnormality ENMT: Ears: no hearing impairment and no external ear abnormality Mouth: no oropharynx abnormality Neck: trachea midline Respiratory: normal respiratory effort; no respiratory distress and no labored breathing Cardiovascular: Rate/Rhythm: regular rate and regular rhythm Gastrointestinal (Abdomen): Soft, nontender, nondistended Musculoskeletal: No calf tenderness Skin: no rashes Neurologic: moves all extremities Psychiatric: A+Ox3, euthymic affect Genitourinary: + CVA tenderness (Right sided noted with percussion) Results & Data ([facility]) Vital Signs (Past 12 Hours) Vital Signs Temp Pulse Pulse Resp BP BP Pulse Ox 10/01/21 20:00 37.2 C 74 20 162/82 H 96 10/01/21 18:00 68 18 154/81 H 97 10/01/21 16:00 84 18 156/88 H 96 10/01/21 14:20 76 20 160/89 H 98 10/01/21 13:40 22 10/01/21 13:14 36.9 C 95 H 24 162/86 H 98 PG Care Time/CCT Total # of Minutes Spent Total Time Spent with Patient: Total time spent is greater than 50% in coordination of care (as documented) at patient's floor/unit and/or counseling patient: Coding Level of Care Code 74807 Inpt Consult Level 5 Diagnoses Calculus of kidney N20.0
[2021-10-02] MEDS: SODIUM CHLORIDE 0.9% 1000ML 1,000 ML IV SCH ×2 (03:08→10:11)
[2021-10-02 07:32] LABS: Basophils # (auto) 0.02 K/uL (0-0.2); Basophils % (auto) 0.3 %; Eosinophils # (auto) 0.11 K/uL (0-0.5); Eosinophils % (auto) 1.6 %; Hematocrit (blood only) 39.8 % (42-52); Hemoglobin 13.4 g/dL (14.0-18.0); Immature Granulocytes # (auto) 0.03 K/uL (0.00-0.02); Immature Granulocytes % (auto) 0.4 %; Lymphocytes # (auto) 2.43 K/uL (1.2-3.4); Lymphocytes % (auto) 34.4 %; Mean Corpuscular Hemoglobin 29.8 pg (25-34); Mean Corpuscular Hgb Conc 33.7 g/dL (32-36); Mean Corpuscular Volume 88.4 fL (80-100); Mean Platelet Volume 9.9 fL (7.4-10.4); Monocytes # (auto) 0.65 K/uL (0.11-0.59); Monocytes % (auto) 9.2 %; Neutrophils # (auto) 3.82 K/uL (1.4-6.5); Neutrophils % (auto) 54.1 %; Platelet Count 176 K/uL (130-400); RDW Coefficient of Variation 13.5 % (11.5-14.5); RDW Standard Deviation 43.9 fL (36.4-46.3); White Blood Count 7.06 K/uL (4.8-10.8)
[2021-10-02 08:11] LABS: BUN Creatinine Ratio 9.5 (10-20); Calcium 8.2 mg/dl (8.5-10.1); Creatinine Clr Calc Pharmacy 124.3 ml/min; Est GFR (African American) 109.1 ml/min; Est GFR (Non-African American) 94.1 ml/min; Potassium 3.9 mmol/L (3.5-5.1)
--- NOTE | 2021-10-02 08:38 | Hospitalist Progress Note ---
Date of Service October 02, 2021 Assessment & Plan (1) Calculus of kidney: Plan: 31 yo male with no PMHx presented to ED with right flank pain. (1) Calculus of right kidney -presented with right flank pain -CT abd/pel: 3 mm obstructing right proximal ureter w/ hydronephrosis -creatinine WNL -does not appear infected, will hold antibiotic for now -cont. IV Dilaudid 1mg q4h PRN for pain, may increase if not controlled -cont Flomax 0.4 mg -cont. IV hydration -strain all urine -Monitor renal function, CBC -urology consulted: attempt to pass stone w/o cystoscopic intervention DVT ppx: SCDs FEN/GI: NPO in case of cystoscopic intervention Code Status: Full Dispo: med/surg (2) Hydronephrosis: (3) Abdominal pain: Admission and Anticipated Discharge Date Admission Date: October 01, 2021 Subjective yesterday around noon, severe pain 3 hours -h/o of kidney stones, last one being in 2017 -does not think stone has passed yet -in good pain control Review of Systems Review of Systems: Constitutional: denies fevers CV: denies chest pain Resp: denies shortness of breath GI: +right sided flank pain. denies nausea, vomiting, constipation, diarrhea : denies pain with urination, no blood in urine Results & Data Results & Data ([facility]) Vital Signs (Past 12 Hours) Vital Signs Temp Pulse Resp BP Pulse Ox 10/02/21 07:16 36.9 C 68 16 124/73 96 10/01/21 21:51 36.7 C 75 16 131/73 98 (1) Hydronephrosis Hydronephrosis type: unspecified Qualified Code(s): N13.30 - Unspecified hydronephrosis (2) Abdominal pain Abdominal location: unspecified location Qualified Code(s): R10.9 - Unspecified abdominal pain
[2021-10-02] MEDS ORDERED: oxyCODONE HCL IR 5 MG TAB (IMMEDIATE RELEASE) PO PRN (08:48)
[2021-10-02] MEDS ORDERED: ACETAMINOPHEN 325 MG TAB PO PRN (08:48)
[2021-10-02] MEDS ORDERED: IBUPROFEN 600 MG TAB PO PRN (08:48)
[2021-10-02] MEDS ORDERED: HYDROmorphone INJ 1 MG/ML SYRINGE IV PRN (08:50)
--- NOTE | 2021-10-02 09:05 | XRay Report ---
XR KUB/Abdomen 1 view CLINICAL HISTORY: right proximal ureteral stone. COMPARISON STUDY: CT of the abdomen and pelvis from 10/01/2021 TECHNIQUE: Single view of the abdomen. FINDINGS: The bowel gas pattern is within normal limits without evidence for dilatation or obstruction. There i s no evidence for organomegaly or gross intra-abdominal mass. No abnormal calcifications are seen suleman ng the course of the urinary tracts bilaterally. No acute osseous pathology. IMPRESSION: 1.No acute intra-abdominal abnormality. No renal calculi can be identified radiographically. ACT 112: Negative or not required by law. Electronically signed by: Robi Nguyen M.D. 10/02/2021 9:03 AM
--- NOTE | 2021-10-02 09:35 | Urology Progress Note ---
Date of Service October 02, 2021 Assessment & Plan (1) Calculus of proximal right ureter: (2) Hydronephrosis: Plan: 31 yo M admitted for right flank pain secondary to 3 mm right proximal ureteral stone and mild hydronephrosis. - Afebrile, nontoxic, lab work reviewed - creatinine 1.05, WBC 7.06 - Subjectively feeling better, denies pain at present - Denies stone passage - KUB today reviewed - right ureteral stone not visualized on today's exam - Discussed options for stone management including trial of passage vs surgical intervention - Discussed stent placement while inpatient vs outpatient surgical options - Discussed stone is a passable size, may take time given proximal location - Ureteral stents were discussed as well as post-operative issues and pain management - Patient prefers trial of passage - Okay to d/c from perspective when medically stable - Recommend home with Tamsulosin, prn analgesics for breakthrough pain, and prn antiemetics - Patient in agreement with plan, all questions answered - Will arrange outpatient follow-up with our service Thank you for allowing us to participate in the acute care of Mr. Tom. Please reconsult us with additional questions, concerns or changes in patient status. Admission and Anticipated Discharge Date Admission Date: October 01, 2021 Supervising Physician Co-Signing Physician Notes Discussed patient with RIKA. Agree with plan. 3mm proximal stone without concern for infection or NELL. Options are MET or stent. Patient preferred MET, which is reasonable. We will schedule outpatient f/u. Stable for discharge home from urologic perspective. Subjective Pt seen and examined at bedside this AM. Awake, alert and sitting up in bed. No acute issues overnight. No stone passage. Denies flank or abdominal pain at present. No nausea or vomiting. Voiding spontaneously without difficulty, no dysuria or hematuria. No fever or chills. Prior stone history - spontaneously passed stones in the past. No prior surgical intervention for stones. Review of Systems Constitutional: as per Subjective / HPI Gastrointestinal: as per Subjective / HPI Genitourinary: + as per Subjective / HPI Physical Exam Constitutional: well developed and well nourished; no acute distress and not ill appearing Neck: normal visual inspection Respiratory: normal respiratory effort and able to speak in complete sentences; no respiratory distress and no labored breathing Cardiovascular: Extremities: no pedal edema Gastrointestinal (Abdomen): Inspection/Auscultation: abdomen normal to inspection; abdomen not distended Neurologic: moves all extremities and awake Psychiatric: Orientation: alert, oriented x 3 and cooperative Eye Contact: good eye contact Genitourinary: no CVA tenderness Results & Data ([facility]) Vital Signs (Past 12 Hours) Vital Signs Temp Pulse Resp BP Pulse Ox 10/02/21 07:16 36.9 C 68 16 124/73 96 10/01/21 21:51 36.7 C 75 16 131/73 98 PG Care Time/CCT Total # of Minutes Spent Total Time Spent with Patient: Total time spent is greater than 50% in coordination of care (as documented) at patient's floor/unit and/or counseling patient: Coding Level of Care Code 59037 Subseq Hosp Care Lvl 2 Diagnoses Calculus of proximal right ureter N20.1 Hydronephrosis N13.30 Hydronephrosis type: unspecified (1) Hydronephrosis Hydronephrosis type: unspecified Qualified Code(s): N13.30 - Unspecified hydronephrosis
--- NOTE | 2021-10-02 10:49 | Discharge Summary ---
Date of Service October 02, 2021 Admission HPI Per Admitting Provider This is a 31-year-old male with past medical history that presents today complaining renal stone. Patient is accompanied by his significant other, is good historian but is in distress secondary to pain. Patient tells me that his pain started earlier today. His left flank with some radiations down to the groin. He denies any fever or chills. He denies any other systemic symptoms such as chest pain, shortness of breath, nausea or vomiting. On arrival to the ER, he had a CT scan which showed a 3 mm nephrolithiasis and and the right ureter with some mild hydronephrosis. Patient was given a 6 mg morphine sulfate dose IV, followed by another 8 mg dose. Patient still having significant pain. After this, he was given a dose of Dilaudid, still with pain. Decision was then made to admit the patient for pain control. Principal Diagnosis Right Calculi Proximal Ureter Discharge Exam Constitutional WD/WN, vitals as above Respiratory normal respiratory effort, lungs clear to auscultation Cardiovascular Rate/Rhythm: regular rate and regular rhythm Gastrointestinal (Abdomen) normal bowel sounds, soft, nontender, no hepatosplenomegaly no CVA tenderness bilaterally Psychiatric A+Ox3, euthymic affect Discharge Data Allergies Allergy/AdvReac Type Severity Reaction Status Date / Time No Known Allergies Allergy Unverified 10/01/21 14:52 Consultations 10/01/21 15:59 ED Decision to Admit Stat 10/01/21 20:02 Consult Urology Routine Ordered Studies Laboratory Results WBC 7.06 K/uL (4.8-10.8) 10/02/21 07:04 RBC 4.50 M/uL (4.7-6.1) L 10/02/21 07:04 Hgb 13.4 g/dL (14.0-18.0) L 10/02/21 07:04 Hct 39.8 % (42-52) L 10/02/21 07:04 MCV 88.4 fL (80-100) 10/02/21 07:04 MCH 29.8 pg (25-34) 10/02/21 07:04 MCHC 33.7 g/dL (32-36) 10/02/21 07:04 RDW Std Deviation 43.9 fL (36.4-46.3) 10/02/21 07:04 RDW Coeff of Ju 13.5 % (11.5-14.5) 10/02/21 07:04 Plt Count 176 K/uL (130-400) 10/02/21 07:04 MPV 9.9 fL (7.4-10.4) 10/02/21 07:04 Immature Gran % (Auto) 0.4 % 10/02/21 07:04 Neut % (Auto) 54.1 % 10/02/21 07:04 Lymph % (Auto) 34.4 % 10/02/21 07:04 [place] % (Auto) 9.2 % 10/02/21 07:04 Eos % (Auto) 1.6 % 10/02/21 07:04 Baso % (Auto) 0.3 % 10/02/21 07:04 Neut # (Auto) 3.82 K/uL (1.4-6.5) 10/02/21 07:04 Lymph # (Auto) 2.43 K/uL (1.2-3.4) 10/02/21 07:04 [place] # (Auto) 0.65 K/uL (0.11-0.59) H 10/02/21 07:04 Eos # (Auto) 0.11 K/uL (0-0.5) 10/02/21 07:04 Baso # (Auto) 0.02 K/uL (0-0.2) 10/02/21 07:04 Immature Gran # (Auto) 0.03 K/uL (0.00-0.02) H 10/02/21 07:04 Sodium 139 mmol/L (136-145) 10/02/21 07:04 Potassium 3.9 mmol/L (3.5-5.1) 10/02/21 07:04 Chloride 111 mmol/L (98-107) H 10/02/21 07:04 Carbon Dioxide 24 mmol/L (21-32) 10/02/21 07:04 Anion Gap 4 (3-11) 10/02/21 07:04 BUN 10 mg/dl (6-23) 10/02/21 07:04 Creatinine 1.05 mg/dl (0.6-1.4) 10/02/21 07:04 Est Cr Clr Drug Dosing 124.3 ml/min 10/02/21 07:04 Est GFR ( Amer) 109.1 ml/min 10/02/21 07:04 Est GFR (Non-Af Amer) 94.1 ml/min 10/02/21 07:04 BUN/Creatinine Ratio 9.5 (10-20) L 10/02/21 07:04 Glucose 93 mg/dl (70-99(Fasting)) 10/02/21 07:04 Calcium 8.2 mg/dl (8.5-10.1) L 10/02/21 07:04 Total Bilirubin 0.8 mg/dl (0.2-1.0) 10/01/21 13:40 AST 20 U/L (13-39) 10/01/21 13:40 ALT 24 U/L (7-52) 10/01/21 13:40 Alkaline Phosphatase 47 U/L (34-104) 10/01/21 13:40 Total Protein 7.0 gm/dl (6.0-8.3) 10/01/21 13:40 Albumin 4.4 gm/dl (3.4-5.0) 10/01/21 13:40 Globulin 2.6 gm/dl (2.5-4.0) 10/01/21 13:40 Albumin/Globulin Ratio 1.7 (0.9-2) 10/01/21 13:40 Lipase 30 U/L (11-82) 10/01/21 13:40 Urine Color [place] 10/01/21 15:08 Urine Appearance Turbid (Clear) A 10/01/21 15:08 Urine pH 5.0 (4.5-7.5) 10/01/21 15:08 Ur Specific [place] 1.034 (1.000-1.030) H 10/01/21 15:08 Urine Protein 2+ (Negative) H 10/01/21 15:08 Urine Glucose (UA) Negative (Negative) 10/01/21 15:08 Urine Ketones Trace (Negative) H 10/01/21 15:08 Urine Blood 3+ (Negative) H 10/01/21 15:08 Urine Nitrite Negative (Negative) 10/01/21 15:08 Urine Bilirubin 1+ (Negative) H 10/01/21 15:08 Urine Urobilinogen Negative (Negative) 10/01/21 15:08 Ur Leukocyte Esterase 1+ (Negative) H 10/01/21 15:08 Urine WBC (Auto) 5-10 /hpf (0-5) H 10/01/21 15:08 Urine RBC (Auto) >30 /hpf (0-4) H 10/01/21 15:08 U Hyaline Cast (Auto) 0 /lpf (0-5) 10/01/21 15:08 U Epithel Cells (Auto) 20-30 /lpf (0-5) H 10/01/21 15:08 Urine Bacteria (Auto) Negative (Negative) 10/01/21 15:08 SARS-CoV-2, RNA, NAAT NEGATIVE (NEGATIVE) 10/01/21 16:00 Impressions Abdomen/Pelvis CT 10/01/21 13:27 CT SCAN OF THE ABDOMEN AND PELVIS WITHOUT IV CONTRAST CLINICAL HISTORY: Right flank pain. COMPARISON STUDY: No priors. TECHNIQUE: CT scan of the abdomen and pelvis is performed from the lung bases to the proximal femora. Images are reviewed in the axial, sagittal, and coronal planes. IV contrast was not administered for this examination. A dose lowering technique was utilized adhering to the principles of ALARA. CT DOSE: 683.90 mGy.cm FINDINGS: Lung bases: The heart is normal in size and without pericardial effusion. The lung bases are clear. A small hiatal hernia is noted. Circumferential wall thickening suggested in the distal esophagus. Liver: The unenhanced liver is normal in size, contour, and attenuation. There is no intrahepatic biliary ductal dilatation. Gallbladder: Unremarkable. Spleen: The spleen is mildly enlarged measuring 14.2 cm in length. Pancreas: Unremarkable. Adrenal glands: Unremarkable. Kidneys: The unenhanced kidneys are normal in size there is a 3 mm obstructing calculus in the right proximal ureter at the level of L3 seen on image #231. This causes mild right hydronephrosis. There is an additional 3 mm nonobstructing calculus in the right upper pole. A 4 mm nonobstructing calculus is seen in the left kidney. There is no left-sided hydronephrosis. There is no evidence of contour deforming renal mass lesion. Abdominal vasculature: The abdominal aorta is normal in course and caliber. Bowel: There is no bowel obstruction. The appendix is well-visualized and normal. Peritoneum: There is no intraperitoneal free air or abdominal ascites. There is a fat-containing umbilical hernia. Lymphadenopathy: None. Pelvic viscera: The bladder, prostate, and seminal vesicles are normal as visualized. There are small bilateral fat-containing inguinal hernias. Skeletal structures: No lytic or blastic lesions are seen. IMPRESSION: 1. There is a 3 mm obstructing calculus in the right proximal ureter. This causes mild right hydronephrosis. 2. Additional small nonobstructing calculi are present in both kidneys. 3. Mild splenomegaly. 4. Circumferential wall thickening is suggested in the distal esophagus. Correlate clinically for evidence of esophagitis. ACT 112: Negative or not required by law. Electronically signed by: Rodney Hernandez M.D. 10/01/2021 3:12 PM KUB X-Ray 10/02/21 07:45 XR KUB/Abdomen 1 view CLINICAL HISTORY: right proximal ureteral stone. COMPARISON STUDY: CT of the abdomen and pelvis from 10/01/2021 TECHNIQUE: Single view of the abdomen. FINDINGS: The bowel gas pattern is within normal limits without evidence for dilatation or obstruction. There is no evidence for organomegaly or gross intra-abdominal mass. No abnormal calcifications are seen along the course of the urinary tracts bilaterally. No acute osseous pathology. IMPRESSION: 1.No acute intra-abdominal abnormality. No renal calculi can be identified radiographically. ACT 112: Negative or not required by law. Electronically signed by: Robi Nguyen M.D. 10/02/2021 9:03 AM Hospital Course (1) Calculus of kidney: 31 yo male with no PMHx presented to ED with right flank pain. (1) Calculus of right kidney -presented with right flank pain -CT abd/pel: 3 mm obstructing right proximal ureter w/ hydronephrosis -creatinine WNL -does not appear infected, will hold antibiotic for now -tylenol for mild pain, ibuprofen for moderate pain, oxycodone for severe pain -stay well hydrated -strain all urine until stone passes, can assess stone for further analysis -urology consulted: attempt to pass stone w/o cystoscopic intervention; f/u with urology in 1-2 weeks to make sure stone passed (2) Hydronephrosis: Total Time Total Time Spent Total Time Spent (In Minutes): <30 Discharge Plan Discharge Items Patient Disposition: Home - Self-Care Reason For Visit: NEEPHROLITHIASIS Discharge Diagnosis: Right Nephrolithiasis Activity: Per Instructions section Non-emergency contact: Primary Care Provider Call non-emergency contact if: you have any medication questions, your symptoms worsen, your pain is not controlled and you have a fever Follow-up/Referrals: Miri Virgen CRNP [Nurse Practitioner] - ([facility] WILL CONTACT YOU TO SCHEDULE A HOSPITAL FOLLOW UP VISIT.) Deangelo Dixon [Primary Care Provider] - 10/09/21 2:00 pm Diet: Regular Addtl Attending Provider Instructions: You were admitted to the hospital for right sided kidney stone. You were treated with pain control and fluids. Due to size of stone and controlled pain, we will discharge you in hopes of passing the stone without cystoscopic intervention. You may try to catch the stone with a strainer for further analysis. A discharge summary will be sent to your primary care physician to ensure continuity of care. Please bring this discharge summary with you to your next office appointment so that your provider can review it at that time. Follow-up appointments: Make a follow-up appointment with your PCP and urologist within the next week. It is very important that you follow up with them shortly after discharge from the hospital. We have requested a follow-up appointment with your primary care physician and urologist within one week of discharge. Please call their office if you do not hear from them. Keep all your follow-up appointments as already scheduled. If you cannot make an appointment, notify your provider. Medications: Your medication list has been reviewed and reconciled upon discharge to ensure accuracy and continuity of care. An updated list of all your medications is included with your hospital discharge paperwork. Please review this list closely,and make note of any changes. Take your medications as instructed; do not skip a dose of your medicines. Make sure all of your doctors know every medicine you are taking (including [id number] medicines, vitamins,and supplements). Call your primary care provider before taking any new medicines (including [id number] medicines, vitamins, and supplements),because some of these may interact with your current medications, or may make your symptoms worse. Tell your primary care provider if you cannot afford your medications. CONTACT YOUR PRIMARY CARE PROVIDER if you experience any of the following: Fever, worsening pain, nausea/vomiting Difficulty following your treatment plan, or difficulty taking medications. CALL 911 OR GO TO THE EMERGENCY DEPARTMENT if you experience any of the following: Sudden, severe abdominal pain or nausea/vomiting Severe chest pain, or chest pain that radiates (moves)to your jaw or arm Sudden, severe shortness of breath or difficulty breathing Thank you for allowing us to participate in your care. Pending Studies at Discharge: No Stand-Alone Forms: My [facility], Smoking Cessation Medications and DC Order Prescriptions: New acetaminophen 325 mg Tablet 650 mg PO Q4H PRN (Reason: fever) Qty: 30 RF: 0 tamsulosin 0.4 mg Capsule 0.4 mg PO HS Qty: 10 RF: 0 ibuprofen 600 mg Tablet 600 mg PO Q6H PRN (Reason: moderate pain) Qty: 30 RF: 0 oxycodone 5 mg Tablet 5 mg PO Q4 PRN (Reason: severe pain) Qty: 10 RF: 0 Discharge Orders: Discharge Order (Routine); Ordered 10/02/21 Ordered By: Arnoldo Atkins Admission Data Admit Date/Time: 10/01/21 17:03 Attending Provider: Tommy Colon Admit Provider: Adan Lees Primary Care Provider: Deangelo Dixon Other Providers: Adan Lees ; Alberto Mann Other Interventions: Discharge Summary Assessment (RN) Last Done: 10/02/21 12:54 Supervising Physician Co-Signing Physician Notes I personally examined the patient and verified all campoverde points of history and exam, discussed case, and agree with decision making with Dr Atkins. Feeling better. Pain easily controlled. No fevers. No intractable nausea or vomiting. Feels very much up to going home. Vitals noted, in general he is awake alert pleasant no distress. HEENT normocephalic atraumatic mucous membranes moist. Breathing unlabored no accessory muscle use good effort. Skin shows no rashes no pallor or icterus. Neuro without focal deficits. Ureterolithiasissmall enough stone, no "red flag" signs or symptomspatient would prefer to go home with expectant managementthis seems extremely reasonable. Home as above. Resident Activity Tracking Resident Involvement: Resident Care Provided Care Provided: Adult Hospital Medicine
--- NOTE | 2021-10-02 18:37 | Billing Data ---
Date of Service October 02, 2021 Coding Level of Care Code D/C DAY MANAGEMENT <30 MINS
== END 2021-10-02 15:56 | disposition home or self-care (01) | DRG 694 ==
LOC: ED 13:12 → SUATTDRO 17:03 → 3N 17:03
DX: N13.2 Hydronephrosis with renal and ureteral calculous obstruction